=== PATIENT | female | born 1995 | race Caucasian/White ===

== ENCOUNTER 2016-07-04 03:51 | Emergency (ER) ==
[2016-07-04 04:48] LABS: URINE MICRO REVIEW NEEDED? NO; URINE SOURCE CLEAN CATCH
[2016-07-04 04:51] LABS: BILIRUBIN URINE NEGATIVE (NEGATIVE); BLOOD URINE NEGATIVE (NEGATIVE); COLOR YELLOW; GLUCOSE URINE NEGATIVE (NEGATIVE); LEUKOCYTES URINE TRACE (NEGATIVE); NITRITE URINE NEGATIVE (NEGATIVE); PROTEIN URINE TRACE mg/dL (NEGATIVE); SP GRAVITY URINE 1.028; TURBIDITY URINE HAZY (CLEAR); UR EPITHELIAL CELLS >10 /HPF (<10); URINE BACTERIA 2+ /HPF; URINE CULTURE NEEDED? YES; URINE RBC <10 /HPF (<10); UROBILINOGEN URINE 2 mg/dL (NORMAL)
[2016-07-04 05:16] LABS: UR AMPHETAMINES QUAL PRESUMPTIVE POSITIVE (NONE DETECT); UR BARBITUATES QUAL NONE DETECTED (NONE DETECT); UR BENZODIAZEPIN QUAL NONE DETECTED (NONE DETECT); UR CANNABINOIDS QUAL NONE DETECTED (NONE DETECT); UR COCAINE QUAL NONE DETECTED (NONE DETECT); UR METHADONE QUAL NONE DETECTED (NONE DETECT); UR OPIATES QUAL NONE DETECTED (NONE DETECT); UR OXYCODONE QUAL NONE DETECTED (NONE DETECT); UR PCP QUAL NONE DETECTED (NONE DETECT)
--- NOTE | 2016-07-04 05:27 | PROVIDER DOCUMENTATION ---
[id number] Abuse/Overdose - General Chief Complaint: General Adult Stated Complaint: "BAD METH" Time Seen by Provider: 07/04/16 04:14 Source: patient Allergies/Adverse Reactions: Allergies Allergy/AdvReac Type Severity Reaction Status Date / Time No Known Allergies Allergy Verified 11/26/15 00:30 Home Medications: Home Medication List Medication Instructions Recorded Confirmed Last Taken Type Doxycycline 100 mg PO BID #20 tablet 04/18/16 Unknown Rx Metronidazole [Flagyl] 500 mg PO BID #20 tablet 04/18/16 Unknown Rx - History of Present Illness-Drug/Alcohol Nature of Presenting Problem: 20 yo BF with terrible psychosocial problems seeking help for drug related problems - 'bad meth', chest heaviness due to crack cocaine smoking, etc. Her mother is in intermediate, father will not speak to her since he learned she was bisexual, unemployable and HS dropout. She has no place to go other than [employer]. - Substance Abuse Substance Use: reports: amphetamines, cocaine Age drug/alcohol abuse began?: 17 Duration of Abuse? (years): 3 - Detox/Hospitalizations Previous detox/rehab admissions?: Yes Currently enrolled in a Methadone Program?: No - Overdose Clinician's estimation of suicide risk?: low risk Review of Systems - Adult - REVIEW OF SYSTEMS - ADULT Constitutional: reports: weight loss Eyes: reports: no symptoms reported Ears, Nose, Mouth & Throat: reports: no symptoms reported Cardiovascular: reports: no symptoms reported Respiratory: reports: no symptoms reported Gastrointestinal: reports: no symptoms reported Genitourinary: reports: no symptoms reported Musculoskeletal: reports: no symptoms reported Integumentary: reports: no symptoms reported Neurological: reports: no symptoms reported Psychiatric: reports: anxiety, emotional problems. denies: anti-depressant use , suicidal thoughts Endocrine: reports: no symptoms reported, other (menorragia) Hematologic/Lymphatic: reports: no symptoms reported Allergic/Immunologic: reports: no symptoms reported All Other Systems: Reviewed and Negative Past History - Adult - PAST MEDICAL HISTORY-ADULT Review of Records: reports: Nursing Assessment Review Major Childhood Illnesses: reports: denies history Cardiovascular: reports: denies history Respiratory: reports: denies history Gastrointestinal: reports: denies history Obstetrical/Gynecological: reports: denies history Genitourinary: reports: denies history Musculoskeletal: reports: denies history Neurological: reports: denies history Psychiatric: reports: denies history Endocrine/Immune: reports: anemia Other Conditions: reports: denies history - PRIOR SURGERIES/PROCEDURES Surgical/Procedure History: reports: none - PRIOR HOSPITALIZATIONS Prior Hospitalizations: reports: none - IMMUNIZATION STATUS Childhood Immunizations: UTD Flu Vaccine: See Nurse Assessment - FAMILY HISTORY Family History: reviewed, not pertinent - SOCIAL HISTORY Smoking: denies Substance Use: amphetamines, cocaine Living Situation: homeless Physical Exam-General - PHYSICAL EXAM-ADULT Initial Vital Signs Reviewed: Yes - CONSTITUTIONAL General Appearance: appears well, alert, no apparent distress - EYES Eyes: PERRL/EOMI - HEAD, EARS, NOSE, MOUTH & THROAT HENMT: moist mucous membranes, normal ENT inspection, TMs normal, pharynx normal . negative: dental decay - NECK Neck: non-tender, full range of motion - RESPIRATORY Respiratory: chest non-tender, lungs clear, normal breath sounds. negative: wheezing - CARDIOVASCULAR Cardiovascular: normal peripheral pulses - CHEST (BREASTS) Chest/Breast: deferred - GASTROINTESTINAL (ABDOMEN) Abdominal Exam: normal bowel sounds, non tender, soft, no organomegaly - GENITOURINARY Female Genitalia/Pelvic Exam: deferred Rectal Exam: deferred - MUSCULOSKELETAL Back Exam: normal inspection Extremity: normal range of motion Peripheral Pulses: radial (R): 3+, radial (L): 3+, femoral (R): 3+, femoral (L) : 3+ - SKIN Integumentary: normal color, normal turgor - NEUROLOGIC Neurologic: grossly normal - PSYCHIATRIC Psych/Mental Status: normal thought content, normal thought process Progress - PLAN OF CARE/RESULTS Progress/Plan/Lab Results: Laboratory Tests 07/04/16 07/04/16 04:30 04:30 Urine Source CLEAN CATCH Urine Color YELLOW Urine Turbidity HAZY Urine pH 6.0 Ur Specific Benton 1.028 Urine Protein TRACE A Ur Glucose (Stick) NEGATIVE Ur Ketones (Stick) 150 A Urine Blood NEGATIVE Urine Nitrite NEGATIVE Urine Bilirubin NEGATIVE Urobilinogen Dipstick 2 A Urine Leukocytes TRACE A Urine WBC (Auto) 10-20 A Urine RBC (Auto) <10 U Epithel Cells (Auto) >10 A Urine Bacteria (Auto) 2+ Urine Opiates Screen NONE DETECTED Ur Oxycodone Screen NONE DETECTED Ur Methadone, Qual NONE DETECTED Ur Barbiturates Screen NONE DETECTED Ur Phencyclidine Scrn NONE DETECTED Ur Amphetamines Screen PRESUMPTIVE POSITIVE A U Benzodiazepines Scrn NONE DETECTED Urine Cocaine Screen NONE DETECTED U Cannabinoids Screen NONE DETECTED Orders Category Date Time Status UA NIMS W/REFLEX CULT [URINALYSIS] Stat Lab 07/04/16 04:30 Completed URINE CULTURE [RM] Routine Lab 07/04/16 04:52 Received URINE DRUG SCREEN Stat Lab 07/04/16 04:30 Completed Vital Signs Temp Pulse Resp BP Pulse Ox 07/04/16 03:40 99.0 F 90 16 124/82 100 No Known Allergies Allergy (Verified 11/26/15 00:30) Doxycycline 100 mg PO BID #20 tablet 04/18/16 Metronidazole [Flagyl] 500 mg PO BID #20 tablet 04/18/16 Laboratory 07/04/16 07/04/16 04:30 04:30 Urine Source CLEAN CATCH Urine Color YELLOW Urine Turbidity HAZY Urine pH 6.0 Ur Specific Benton 1.028 Urine Protein TRACE A Ur Glucose (Stick) NEGATIVE Ur Ketones (Stick) 150 A Urine Blood NEGATIVE Urine Nitrite NEGATIVE Urine Bilirubin NEGATIVE Urobilinogen Dipstick 2 A Urine Leukocytes TRACE A Urine WBC (Auto) 10-20 A Urine RBC (Auto) <10 U Epithel Cells (Auto) >10 A Urine Bacteria (Auto) 2+ Urine Opiates Screen NONE DETECTED Ur Oxycodone Screen NONE DETECTED Ur Methadone, Qual NONE DETECTED Ur Barbiturates Screen NONE DETECTED Ur Phencyclidine Scrn NONE DETECTED Ur Amphetamines Screen PRESUMPTIVE POSITIVE A U Benzodiazepines Scrn NONE DETECTED Urine Cocaine Screen NONE DETECTED U Cannabinoids Screen NONE DETECTED Departure - Departure Time of Disposition Order: 05:37 DIAGNOSIS: Amphetamine abuse, continuous Disposition: HOME 01 Certified Medical Emergency: Emergent Condition: Good Additional Instructions: ED Follow Up Instructions: You have been treated by a care provider in the Emergency Department. These instructions are being provided to you so you can have an understanding of how to care for yourself upon discharge. Upon discharge from the Emergency Department, you are responsible for making arrangements for follow-up care by a physician of your choice. Take all prescribed medications as directed. Return to the Emergency Department immediately for any new or worsening symptoms. You may call the Physician Referral phone number at [phone] to obtain a list of Physicians who are taking new patients. Referrals: Jose Parish MD [Primary Care Provider] - Instructions: Polysubstance Abuse, Stimulant Use Disorder-Methamphetamines
[2016-07-04 06:13] VITALS: BP 125/55
== END 2016-07-04 06:24 | disposition home or self-care (01) ==
LOC: EDUNIT# → EDBD → ED 03:51
DX: F15.10 Other stimulant abuse, uncomplicated (principal); R07.89 Other chest pain; R63.4 Abnormal weight loss; N92.0 Excessive and frequent menstruation with regular cycle
CPT/HCPCS: 81001; 87088; G0480; 80324; 80345; 80346; 80349; 80353; 80358; 80361; 80365; 83992

== ENCOUNTER 2018-08-26 17:57 | Inpatient (IN) ==
--- NOTE | 2018-08-26 18:26 | EKG Report ---
Test Performed on : 08/26/2018 6:08:22 PM Test Reason : cp Blood Pressure : / mmHG Vent. Rate : 098 BPM Atrial Rate : 098 BPM P-R Int : 144 ms QRS Dur : 090 ms QT Int : 338 ms P-R-T Axes : 073 063 062 degrees QTc Int : 431 ms Normal sinus rhythm. Normal ECG When compared with ECG of 06-NOV-2016 02:45, No significant change was found Confirmed by Israel Biggs MD ([id number]), film editor supervisor Adamaris Laird ([id number]) on 09/01/2018 1:54:51 PM
--- NOTE | 2018-08-26 19:19 | Diag Imaging Result Doc PS360 ---
EXAM: CHEST-2 VIEWS INDICATION: cp TECHNIQUE: 2 views COMPARISON: 11/03/2017 FINDINGS: The lungs are grossly clear. There is no discrete pleural fluid collection or pneumothorax. The cardiomediastinal silhouette and central vasculature are grossly unremarkable. IMPRESSION: No evidence of acute pathology by plain radiograph. Electronically signed by Justin Braun 08/26/2018 7:17 PM
[2018-08-26] MEDS ORDERED: SODIUM CHLORIDE 0.9% INJ ONE (19:30)
[2018-08-26] MEDS ORDERED: PROTONIX IV ONE (19:30)
[2018-08-26] MEDS ORDERED: ZOFRAN IV ONE (19:30)
[2018-08-26 19:56] LABS: BASO# 0.01 X1000 (0.0-0.2); BASO% 0.1 % (0.0-0.8); EOS# 0.01 X1000 (0.0-0.7); EOS% 0.1 % (0.0-10.0); HEMATOCRIT 38.1 % (37.0-47.0); HEMOGLOBIN 12.9 g/dL (12.0-16.0); IMM GRAN# 0.03 X1000 (0.0-0.04); IMM GRAN% 0.3 % (0.0-0.5); LYMPH# 0.93 X1000 (1.2-3.4); LYMPH% 8.9 % (20.5-51.1); MCH 29.9 PG (27-31); MCHC 33.9 g/dL (33-37); MCV 88.2 FL (81-99); MONO# 0.89 X1000 (0.11-0.59); MONO% 8.5 % (1.7-9.3); MPV 10.3 FL (7.4-10.4); NEUT# 8.58 X1000 (1.4-6.5); NEUT% 82.1 % (42.2-75.2); PLT 248 X1000 (130-400); RBC 4.32 XMIL (4.2-5.4); RDW 12.6 % (11.5-14.5); WBC 10.45 X1000 (4.8-10.8)
[2018-08-26 20:22] LABS: AGAP 11; ALBUMIN 4.2 g/dL (3.5-5.0); ALKALINE PHOSPHATASE 169 U/L (32-104); BUN 7 mg/dL (8-22); CALCIUM 9.3 mg/dL (8.8-10.2); CHLORIDE 97 mmol/L (98-107); COSMO 269; CREATININE 0.4 mg/dL (0.5-0.9); ESTIMATED GFR > 60; GLUCOSE 111 mg/dL (70-104); GPT 685 U/L (10-36); LIPASE 9 U/L (13-60); SODIUM 135 mmol/L (136-145); TCO2 27 mmol/L (25-35); TOTAL PROTEIN 8.1 g/dL (6.3-8.3)
[2018-08-26 20:33] LABS: GOT 969 U/L (10-30)
[2018-08-26] MEDS ORDERED: G.I. COCKTAIL ONE (20:34)
[2018-08-26] MEDS ORDERED: G.I. COCKTAIL PO ONE (20:36)
[2018-08-26] MEDS ORDERED: MORPHINE IV ONE ×2 (21:22→22:52)
[2018-08-26] MEDS ORDERED: ZOSYN 3.375 GM in NS 50 ML IV ONE (23:05)
--- NOTE | 2018-08-26 23:11 | PROVIDER DOCUMENTATION ---
This chart was entered by Cristiana Bautista Scribe, acting as scribe for Nicola White MD. HPI-General Adult - General Chief Complaint: Chest Pain Stated Complaint: EXTREMITY PAIN Time Seen by Provider: 08/26/18 19:11 Source: patient Allergies/Adverse Reactions: Patient Allergies Allergy/AdvReac Type Severity Reaction Status Date / Time No Known Allergies Allergy Verified 08/26/18 18:04 Home Medications: Home Medication List Medication Instructions Recorded Confirmed Last Taken Type Ibuprofen [Motrin] 800 mg PO Q8H PRN PRN #30 tab 11/03/17 Unknown Rx - History of Present Illness -Gen Adult Nature of Presenting Problems: pt is a 22 yr old female presenting with chest/abdominal pain, nausea and vom iting, pt reports dx as pleurisy at [facility] 08/19/18, pt reports pain not improving, filled prescriptions yesterday with no improvement since using inhaler, pt denies any other pain or complaints Location of Pain/Injury: reports: chest, abdomen Pain Radiation: reports: back Quality of Pain: reports: aching, burning, sharp Severity: reports: moderate Onset/Duration: reports: last week Timing: reports: still present Context/Activities at Onset: reports: light activity Modifying Factors: improves with: breathing (worsens pain), rest (improves pain) , other (inhaler-no improvement) Associated Symptoms: reports: back/neck pain, chest pain, heartburn, nausea, pain with inspiration, vomiting. denies: dizziness, fever/chills, shortness of breath Similar Symptoms Previously?: Yes (dx as pluerisy) Recently seen or treated by another doctor?: Yes (08/19/18) Review of Systems - Adult - REVIEW OF SYSTEMS - ADULT Constitutional: denies: chills, fever Eyes: denies: discharge, blurred vision, double vision, redness Ears, Nose, Mouth & Throat: reports: no symptoms reported Cardiovascular: reports: chest pain. denies: palpitations, syncope Respiratory: reports: pleurisy. denies: cough, shortness of breath Gastrointestinal: reports: abdominal pain, nausea, vomiting Genitourinary: reports: no symptoms reported Musculoskeletal: reports: back pain. denies: neck pain Integumentary: reports: no symptoms reported Neurological: denies: dizziness/vertigo, headache/migraines Psychiatric: reports: no symptoms reported Endocrine: reports: no symptoms reported Hematologic/Lymphatic: reports: no symptoms reported Allergic/Immunologic: reports: no symptoms reported All Other Systems: Reviewed and Negative Past History - Adult - PAST MEDICAL HISTORY-ADULT Review of Records: reports: Old Records Reviewed, Nursing Assessment Review, Medications Reviewed, Social history reviewed & non-contributory. Major Childhood Illnesses: reports: denies history Cardiovascular: reports: denies history Respiratory: reports: denies history Gastrointestinal: reports: denies history Obstetrical/Gynecological: reports: denies history Genitourinary: reports: denies history Musculoskeletal: reports: denies history Neurological: reports: denies history Psychiatric: reports: denies history Endocrine/Immune: reports: anemia Other Conditions: reports: denies history - PRIOR SURGERIES/PROCEDURES Surgical/Procedure History: reports: none - PRIOR HOSPITALIZATIONS Prior Hospitalizations: reports: none - IMMUNIZATION STATUS Childhood Immunizations: UTD Flu Vaccine: See Nurse Assessment - FAMILY HISTORY Family History: reviewed, not pertinent - SOCIAL HISTORY Smoking: cigarettes Provider spent 3-5 mins advising pt. on dangers of tobacco.: Discussed manners to quit use, and f/u contacts for add'l counseling. Substance Use: alcohol Living Situation: family Physical Exam-General - PHYSICAL EXAM-ADULT Initial Vital Signs Reviewed: Yes - CONSTITUTIONAL General Appearance: appears well, alert, no apparent distress - EYES Eyes: PERRL/EOMI - HEAD, EARS, NOSE, MOUTH & THROAT HENMT: normocephalic/atraumatic, moist mucous membranes, normal ENT inspection - NECK Neck: full range of motion, supple, C-spine tenderness - RESPIRATORY Respiratory: chest non-tender, lungs clear, normal breath sounds, no respiratory distress, no accessory muscle use - CARDIOVASCULAR Cardiovascular: normal peripheral pulses, no edema, no gallop, no JVD, no murmur , tachycardia - GASTROINTESTINAL (ABDOMEN) Abdominal Exam: normal bowel sounds, soft, tenderness (diffuse tenderss, increased at RUQ, epigatrium and RLQ) - LYMPHATIC Lymphatic: no adenopathy - MUSCULOSKELETAL Back Exam: no CVA tenderness, no vertebral tenderness Extremity: normal range of motion, non-tender, normal gait, normal inspection Peripheral Pulses: radial (R): 2+, radial (L): 2+ - SKIN Integumentary: normal color, normal turgor, warm/dry - NEUROLOGIC Neurologic: grossly normal, no motor/sensory deficits - PSYCHIATRIC Psych/Mental Status: normal mood/affect Progress - PLAN OF CARE/RESULTS Progress/Plan/Lab Results: Vital Signs - 8 hr 08/26/18 18:00 08/26/18 20:01 Temperature 97.9 F 98.6 F Pulse Rate 106 H 94 H Respiratory Rate 20 14 Blood Pressure 136/83 120/74 O2 Sat by Pulse Oximetry 99 97 Laboratory Results - last 24 hr 08/26/18 19:40 WBC 10.45 RBC 4.32 Hgb 12.9 Hct 38.1 MCV 88.2 MCH 29.9 MCHC 33.9 RDW Std Deviation 12.6 Plt Count 248 MPV 10.3 Immature Gran % (Auto) 0.3 Neut % (Auto) 82.1 H Lymph % (Auto) 8.9 L Robertson % (Auto) 8.5 Eos % (Auto) 0.1 Baso % (Auto) 0.1 Immature Gran # (Auto) 0.03 Neut # (Auto) 8.58 H Lymph # (Auto) 0.93 L Robertson # (Auto) 0.89 H Eos # (Auto) 0.01 Baso # (Auto) 0.01 Orders Category Date Time Status If abnormal EKG, order: NOW Care 08/26/18 18:06 Active Medical Records [Old records/chart to unit] .From other Care 08/26/18 19:31 Active facility CHEST-2 VIEWS [RAD] Stat Exams 08/26/18 18:06 Completed AMYLASE [CHEM] Routine Lab 08/26/18 19:40 Received CBC WITH DIFF [HEME] Stat Lab 08/26/18 19:40 Completed COMPREHENSIVE METABOLIC PANEL [CHEM] Stat Lab 08/26/18 19:40 Received LIPASE [CHEM] Stat Lab 08/26/18 19:40 Received Ondansetron [Zofran] Med 08/26/18 19:30 Discontinued 8 mg IV NOW ONE Pantoprazole [Protonix] Med 08/26/18 19:30 Discontinued 40 mg IV NOW ONE Sodium Chloride 0.9% Med 08/26/18 19:30 Discontinued 10 ml INJ NOW ONE CP/Palp <45 No Known Cardiac Hx Stat Oth 08/26/18 18:05 Ordered EKG [EKG] Stat Ther 08/26/18 18:06 Draft Records obtained from emil Porter Result Diagrams: 08/26/18 19:40 08/26/18 19:40 - EKG 1 Time of EKG reading by physician:: 18:10 EKG Read and Signed by:: Israel Biggs EKG Interpretation (*Must complete 3 of following elements*): Normal Rate: 98 Rhythm: nsr Dillon: normal QRS: normal MN Interval: normal ST Wave: normal - XRAY 1 XRAY Study: Chest Impression: Normal ( Signed EXAM: CHEST-2 VIEWS INDICATION: cp TECHNIQUE: 2 views COMPARISON: 11/03/2017 FINDINGS: The lungs are grossly clear. There is no discrete pleural fluid collection or pneumothorax. The cardiomediastinal silhouette and central vasculature are grossly unremarkable. IMPRESSION: No evidence of acute pathology by plain radiograph. Electronically signed by Justin Braun 08/26/2018 7:17 PM 08/26/181916 Interpreting Physician: Justin Braun MD Dictated Date/Time: 08/26/181915 cc: Israel Biggs MD; Jose Parish MD) Comparison with other Films: no changes (11/03/17) - ULTRASOUND (By Radiology) 1 US Study: Gallbladder Impression: Abnormal (1.gallstones but no gallbladder wall thickening to suggest ultrasound findings of acute cholecystitis, there is positive sonographic lepe sign) US Results: 1.gallstones but no gallbladder wall thickening to suggest ultrasound finds - CONSULTS/PCP/HOSPITALIST Notification #1 *Consult/PCP/Hospitalist*: Masood Time Discussed: 23:06 Consult Disposition: Admit Departure - Departure Date of Disposition Decision: 08/26/18 Time of Disposition Decision: 23:06 DIAGNOSIS: Cholelithiasis Qualifiers: Cholelithiasis location: gallbladder Cholecystitis presence: without cholecystitis Biliary obstruction: without biliary obstruction Qualified Code(s): K80.20 - Calculus of gallbladder without cholecystitis without obstruction Disposition: ADMITTED INPATIENT 09 Certified Medical Emergency: Emergent Condition: Good Additional Freetext Instructions: ED Follow Up Instructions: You have been treated by a care provider in the Emergency Department. These i nstructions are being provided to you so you can have an understanding of how to care for yourself upon discharge. Upon discharge from the Emergency Department, you are responsible for making arrangements for follow-up care by a physician of your choice. Take all prescribed medications as directed. Return to the Emergency Department immediately for any new or worsening symptoms. You may call the Physician Referral phone number at [phone] to obtain a list of Physicians who are taking new patients. Referrals and Follow-Ups: Jose Parish MD [Primary Care Provider] - Work Excuses: Return to School/Parent Work - Critical Care Note This patient required my direct & personal management of CC.: No Attestation - Physician/ BELA Attestation Patient care was provided by Advanced Practice Provider:: No The physician spent face to face time with patient:: Yes Advanced Practice Provider documentation review:: Supervising physician onsite and consulted in the evaluation and care of this patient. The physician did have a face to face encounter with the patient. This chart was documented by the indicated scribe, (Cristinaa Bautista Scribe) and accurately reflects the services I performed and decisions made by me, Nicola White MD, as attested by the provider's signature.
[2018-08-27] MEDS ORDERED: ZOFRAN IV PRN ×2 (02:57→15:14)
[2018-08-27] MEDS ORDERED: NS 1,000 ML IV ONE (02:57)
[2018-08-27] MEDS: MORPHINE IV PRN ×4 (03:44→19:57)
--- NOTE | 2018-08-27 06:31 | Diag Imaging Result Doc PS360 ---
EXAM: US GB < RUQ (LIMITED) HISTORY: RUQ pain TECHNIQUE: Right upper quadrant ultrasound COMPARISON: None. FINDINGS: Normal pancreatic head. Portions of the body and tail are obscured. No abdominal aortic aneurysm. Normal inferior vena cava. No ascites right upper quadrant. Normal liver. The common bile duct measures 7 mm. Normal right kidney. No hydronephrosis. There are multiple gallstones and there is sludge within the gallbladder. There is pericholecystic fluid. Positive sonographic Johns's sign. IMPRESSION: Cholelithiasis with findings suspicious for acute cholecystitis. A preliminary report was given at 10:49 PM. A corrected report was called at 6:25 AM and given to the patient's nurse, Pia. Electronically signed by Hi Tenorio 08/27/2018 6:28 AM
[2018-08-27] MEDS ORDERED: FENTANYL ONE (09:22)
[2018-08-27] MEDS ORDERED: DIPRIVAN 1% ONE (09:22)
[2018-08-27] MEDS ORDERED: SODIUM CHLORIDE 0.9% ONE (09:33)
[2018-08-27] MEDS ORDERED: LR 1,000 ML ONE (09:33)
[2018-08-27] MEDS ORDERED: SENSORCAINE 0.5%-EPI 1:200,000 ONE (09:33)
--- NOTE | 2018-08-27 09:43 | HISTORY AND PHYSICAL ---
DATE: 08/27/2018 HISTORY OF PRESENT ILLNESS: A 22-year-old female who has had right-sided chest and abdominal discomfort for several months. It became more severe. She went to the ER in [place] and was told she had pleurisy, but came here and an ultrasound was obtained that showed gallstones with possible acute cholecystitis. She denies any jaundice. Her liver function tests are elevated. She denies any heavy Tylenol use, but has been taking some Tylenol for pain relief. REVIEW OF SYSTEMS: 10-point and negative other than what was mentioned in her history of present illness. MEDICAL HISTORY: Negative, other than history of anemia. SURGICAL HISTORY: Negative. SOCIAL HISTORY: Occasionally drinks, occasionally smokes. No other drugs. FAMILY HISTORY: Reviewed and noncontributory. OBJECTIVE: Vitals: Temperature 97.9, pulse 94, blood pressure 130/80, oxygen 99%. General: She is alert, in no acute distress. HEENT: No scleral icterus. No cervical mass. Cardiovascular: Normal rate. Pulmonary: No increased work of breathing. Abdomen: Soft. Mild tenderness in the right upper quadrant, but no peritonitis. Psychiatric: Appropriate affect. Neurologic: No gross deficits. Peripheral vascular: No lower extremity edema. LABORATORY: White count 10, hematocrit 38, platelets 248,000. Creatinine 0.4, bilirubin is 1.50, AST 969, ALT 685, alkaline phosphatase 169, lipase is 9. Albumin is 4.2. IMAGING: Her ultrasound of her gallbladder shows common bile duct measuring 7 mm, multiple gallstones and sludge in the gallbladder. There is pericholecystic fluid, and a positive sonographic Johns's sign. ASSESSMENT AND PLAN: A 22-year-old female with acute cholecystitis in the setting of cholelithiasis. She does have elevation of liver function tests. Her common bile duct is normal caliber. We discussed risk of bleeding, infection, conversion to open, damage to surrounding structures, bile leak, anticipated recovery. She understands all this and consents to laparoscopic cholecystectomy with cholangiogram. We also discussed the possibility of a follow-up ERCP if she does have choledocholithiasis noted on cholangiogram. She received antibiotics, antiemetics, pain medication. She is on IV fluids. We will go to the operating room today. cc: MD SOY Erwin
[2018-08-27] MEDS ORDERED: ZOSYN 3.375 GM in NS 50 ML IV ONE (10:00)
[2018-08-27] MEDS ORDERED: DECADRON ONE (11:19)
[2018-08-27] MEDS ORDERED: OFIRMEV 1000 MG/ISOTONIC SOLN 1,000 MG/100 ML BOTTLE ONE (11:19)
[2018-08-27] MEDS ORDERED: QUELICIN (DOSE) ONE (11:19)
[2018-08-27] MEDS ORDERED: ZOFRAN ONE (11:19)
[2018-08-27] MEDS ORDERED: NEOSTIGMINE ONE (11:19)
[2018-08-27] MEDS ORDERED: XYLOCAINE-MPF 2% ONE (11:19)
[2018-08-27] MEDS ORDERED: NEO-SYNEPHRINE ONE (11:20)
--- NOTE | 2018-08-27 11:32 | Diag Imaging Result Doc PS360 ---
EXAM: OPERATIVE CHOLANGIOGRAM HISTORY: GALLBLADDER TECHNIQUE: Intraoperative cholangiogram, single view COMPARISON: None. FINDINGS: Contrast fills the intrahepatic ducts and common bile duct. There is a filling defect within the common bile duct. The intrahepatic ducts are dilated. IMPRESSION: There is a stone in the common bile duct. Electronically signed by Hi Tenorio 08/27/2018 11:30 AM
[2018-08-27] MEDS: MORPHINE ONE ×2 (12:15→12:20)
--- NOTE | 2018-08-27 12:54 | OPERATIVE NOTE ---
PROCEDURE DATE: 08/27/2018 PREOPERATIVE DIAGNOSIS: Acute cholecystitis. POSTOPERATIVE DIAGNOSIS: Acute cholecystitis with choledocholithiasis. PROCEDURE PERFORMED: Laparoscopic cholecystectomy with cholangiogram. SURGEON: Jaret Correia M.D. ANESTHESIA: General. SPECIMENS: Gallbladder. DRAINS: Delfino drain. INDICATIONS: A 22-year-old female who presents with right upper quadrant, right flank, and chest pain for several months. She had an ultrasound obtained in the emergency department that showed gallbladder wall thickening with tenderness and gallstones in the setting of elevated liver function tests. She is admitted for further management. OPERATIVE FINDINGS: There was a densely inflamed, erythematous gallbladder with purulent bile noted within. Numerous stones impacted within the neck of the gallbladder. Massively dilated cystic duct, consistent with distal obstruction. Interpretation of intraoperative cholangiogram showed abrupt transition point in the common bile duct related to a retained gallstone here with dense obstruction. There was dilated common hepatic and intrahepatic radicals consistent with choledocholithiasis. DESCRIPTION OF PROCEDURE: Risks, benefits, and alternatives were discussed with the patient, and she consented to the procedure. She was seen preoperatively. Surgical site was confirmed. She was taken to the operating room and placed in the supine position. General anesthesia was induced without complication. All bony prominences were padded. Her abdomen was prepped with chlorhexidine solution, draped in the usual fashion. After a time-out, a curvilinear infraumbilical incision was made, carried down to the level of the fascia. The fascia was incised, and the abdomen was insufflated to 15 mmHg. We then placed 3 trocars, 5 mm, one in the epigastrium, one in the midclavicular line off the costal margin, and one more laterally. The gallbladder was grasped and retracted cephalad, and it was tensely distended. We had to decompress this with suction decompression catheter to facilitate exposure. There was a very large, inflamed Calot's node that we dissected down to expose the infundibulum cystic junction and a small cystic artery that coursed through this that we encircled and divided with electrocautery. This facilitated our exposure. We dissected the lower third of the gallbladder, identifying the critical view. The cystic duct was very dilated. We made an opening after occluding the infundibulum proximally, and milked out a large amount of purulent sludge and bile and stones within the lumen, and suctioned all this until clear. We felt we had adequately cleared the duct, and performed a cholangiogram through this with the above findings. After confirming our anatomy, that the length of the cystic duct was quite long, but it was very dilated, it would not allow closure with a clip, we elected use an Endo REYNA stapler. We confirmed our anatomy. You could actually visualize the common bile duct well away from where we were to ensure that we did not encroach on this, and it was very dilated. We closed this with a 45 mm gold load Endo REYNA stapler. There was good closure. We removed the gallbladder with no significant spillage of bile or stones, and placed it in an EndoCatch bag. We copiously irrigated. There was good closure of the cystic duct. There was no bleeding. We placed a Delfino drain in the gallbladder fossa. I did have to upsize the epigastric port to a 12 to admit the stapler. We secured the drain with nylon suture, desufflated the abdomen, and brought the gallbladder out through the umbilical incision, closed the fascia at the epigastric and the umbilical incision with 0 Vicryl. Skin was closed with 4-0 Monocryl. Drain was placed to suction. It was clear. cc: Jaret Correia MD
[2018-08-27] MEDS: ZOSYN 3.375 GM in NS 50 ML IV SCH ×2 (17:24→21:17)
[2018-08-27] MEDS: LR 1,000 ML IV SCH (17:25)
[2018-08-27] MEDS: NORCO-7.5 PO PRN (21:16)
[2018-08-28] MEDS: MORPHINE IV PRN ×8 (00:34→21:28)
[2018-08-28] MEDS: LR 1,000 ML IV SCH ×2 (03:32→15:29)
[2018-08-28] MEDS: ZOSYN 3.375 GM in NS 50 ML IV SCH ×4 (03:32→21:28)
[2018-08-28 09:23] LABS: BASO# 0.01 X1000 (0.0-0.2); BASO% 0.1 % (0.0-0.8); EOS# 0.04 X1000 (0.0-0.7); EOS% 0.4 % (0.0-10.0); HEMATOCRIT 35.6 % (37.0-47.0); HEMOGLOBIN 11.5 g/dL (12.0-16.0); IMM GRAN# 0.02 X1000 (0.0-0.04); IMM GRAN% 0.2 % (0.0-0.5); LYMPH# 1.42 X1000 (1.2-3.4); MCH 29.3 PG (27-31); MCHC 32.3 g/dL (33-37); MCV 90.8 FL (81-99); MONO% 10.1 % (1.7-9.3); MPV 10.6 FL (7.4-10.4); NEUT# 8.32 X1000 (1.4-6.5); NEUT% 76.2 % (42.2-75.2); PLT 235 X1000 (130-400); RBC 3.92 XMIL (4.2-5.4); RDW 13.4 % (11.5-14.5); WBC 10.91 X1000 (4.8-10.8)
[2018-08-28 09:38] LABS: AGAP 6; ALB/GLOB RATIO 0.9; ALBUMIN 3.2 g/dL (3.5-5.0); ALKALINE PHOSPHATASE 225 U/L (32-104); BUN 5 mg/dL (8-22); CALCIUM 8.7 mg/dL (8.8-10.2); CHLORIDE 102 mmol/L (98-107); COSMO 273; CREATININE 0.6 mg/dL (0.5-0.9); ESTIMATED GFR > 60; GLUCOSE 92 mg/dL (70-104); GOT 246 U/L (10-30); GPT 601 U/L (10-36); LIPASE 8 U/L (13-60); POTASSIUM 3.8 mmol/L (3.5-5.1); SODIUM 138 mmol/L (136-145); TCO2 30 mmol/L (25-35); TOTAL BILIRUBIN 3.08 mg/dL (0.20-1.00); TOTAL PROTEIN 6.7 g/dL (6.3-8.3)
[2018-08-28] MEDS: PROTONIX IV SCH (10:58)
--- NOTE | 2018-08-28 12:10 | GENERAL SURGERY PROGRESS NOTE ---
DATE: 08/28/2018 SUBJECTIVE: She felt much better last night, having some increasing discomfort across her upper abdomen this morning. No fevers. No tachycardia. Her blood pressure is 107/55, oxygen saturation 100%. OBJECTIVE: General: She is alert. Her GODWIN drain is draining serosanguineous. Incisions are intact. LABS: White count is 10, hematocrit 35, creatinine 0.6, bilirubin is up to 3.08. AST, ALT are downtrending from previous but remain elevated. Lipase normal. ASSESSMENT AND PLAN: This 22-year-old female status post laparoscopic appendectomy for purulent cholecystitis with choledocholithiasis noted on her cholangiogram. We have her on antibiotics. Drain is clear. We will continue her pain control. I have talked to Dr. Wright and Dr. Rey about her ERCP. We will defer timing of this to them but hopefully today or tomorrow. We will continue to follow her closely with serial LFTs and antibiotics going forward. I do have her on IV fluids. She has got SCDs and she is ambulating for prophylaxis, but given the possibility of ERCP, we are holding her Lovenox. cc: Jaret Correia MD
[2018-08-28] MEDS: NORCO-7.5 PO PRN ×3 (12:17→21:44)
--- NOTE | 2018-08-28 12:19 | GASTROENTEROLOGY CONSULTATION ---
DATE: 08/28/2018 ATTENDING PHYSICIAN: Dr. Edison Correia. PRIMARY CARE DOCTOR: Dr. Jose Parish. REASON FOR CONSULTATION: Choledocholithiasis. HISTORY OF PRESENT ILLNESS: Ms. Fleming is a 22-year-old female, who was admitted on 08/19/2018, for right-sided chest and abdominal discomfort for several months. It got worse to a point that she had to come to the ER. Initially, she went to the ER and was told that she had pleurisy, but then she came to [facility] where she had ultrasound done which showed evidence of gallstones with possible acute cholecystitis. Her liver enzymes were elevated. She underwent laparoscopic cholecystectomy with cholangiogram per Dr. Correia on 08/27/2018. The intraoperative cholangiogram showed a stone in the common bile duct. Gastroenterology consulted for further management. PAST MEDICAL HISTORY: Negative. PAST SURGERY: Recent cholecystectomy, intraoperative cholangiogram on 08/19/2018. SOCIAL HISTORY: She occasionally drinks. She occasionally smokes. No other drugs. Her family is at the bedside. FAMILY HISTORY: Noncontributory. REVIEW OF SYSTEMS: Denies any fevers, rigors, chills, chest pain. She does have some soreness at the surgery site. No nausea or vomiting. She denies any major arthritis. She denies any neurologic complaints. MEDICATIONS IN HOSPITAL: 1. Hydrocodone/acetaminophen. 2. Ringer's lactate 100 mL per hour. 3. Morphine. 4. Zofran. 5. Protonix. 6. Normal saline. 7. Zosyn. She is currently on a clear liquid diet. PHYSICAL EXAMINATION: Vital Signs: Temperature 98 degrees, pulse of 91, respiratory rate 16, blood pressure 107/55, saturating 100%. Body weight of 140 pounds, BMI 27.3 kg. General: Ms. Fleming is lying in bed, in no acute distress. HEENT: Mild pallor. Mild icterus. Pupils equal, reactive to light. Neck: Supple. Abdomen: Discomfort in the right upper quadrant. She has a drain in the right upper quadrant which is draining some serosanguineous fluid. No guarding or rebound. Extremities: No cyanosis, clubbing. Neurologic: Alert, awake, oriented. LABORATORY DATA: Hemoglobin and hematocrit are 11.5 and 35.6, white count of 10.9, platelet count of 235,000. Sodium 130, potassium 3.8, chloride 102, bicarb of 39, AG 6, BUN of 5, creatinine 0.6, glucose of 892. Calcium is 8.7, total bilirubin 3.08, AST 246, ALT 601, alkaline phosphatase 225, total protein 6, albumin of 3.2. Amylase of 41, lipase of 8. Percent neutrophils was 76.2%. Liver enzymes are trending down, and urine was negative. Ultrasound of the abdomen done on admission showed cholelithiasis with findings suspicious for acute cholecystitis. IMPRESSION AND PLAN: 1. Choledocholithiasis. 2. Cholecystectomy with intraoperative cholangiogram on 08/27/[address] Correia. RECOMMENDATIONS: 1. We will keep the patient on clear liquid diet today. She will continue IV fluids, IV pain control, IV antiemetics, and IV antibiotics. 2. We will schedule her for ERCP tomorrow by Dr. Wright. The risks, benefits, indications, alternatives to the procedure discussed with the patient and all questions were answered. The procedure will be done by Dr. Wright tomorrow. We will continue to follow her labs. We will recheck her labs in the morning tomorrow. 3. We will follow along. 4. We will start on GI prophylaxis with PPIs once daily. The above plan discussed with the patient. All questions answered. Please call us with any further questions. cc: MD Jaret Metz MD Kenneth E. Mashburn, MD MTDD
[2018-08-29] MEDS: MORPHINE IV PRN ×8 (00:21→22:30)
[2018-08-29] MEDS: NORCO-7.5 PO PRN ×4 (01:47→21:03)
[2018-08-29] MEDS: ZOSYN 3.375 GM in NS 50 ML IV SCH ×4 (04:48→21:04)
[2018-08-29 06:27] LABS: BASO# 0.02 X1000 (0.0-0.2); BASO% 0.3 % (0.0-0.8); EOS# 0.09 X1000 (0.0-0.7); EOS% 1.4 % (0.0-10.0); HEMATOCRIT 33.5 % (37.0-47.0); HEMOGLOBIN 10.9 g/dL (12.0-16.0); LYMPH# 1.34 X1000 (1.2-3.4); LYMPH% 20.3 % (20.5-51.1); MCH 29.5 PG (27-31); MCHC 32.5 g/dL (33-37); MCV 90.8 FL (81-99); MONO# 0.78 X1000 (0.11-0.59); MONO% 11.8 % (1.7-9.3); MPV 10.4 FL (7.4-10.4); NEUT# 4.38 X1000 (1.4-6.5); NEUT% 66.2 % (42.2-75.2); PLT 229 X1000 (130-400); RBC 3.69 XMIL (4.2-5.4); RDW 13.2 % (11.5-14.5); WBC 6.61 X1000 (4.8-10.8)
[2018-08-29 06:38] LABS: INR 1.11; PROTIME 15.2 Seconds (11.0-16.0)
[2018-08-29 07:24] LABS: AGAP 11; ALBUMIN 3.1 g/dL (3.5-5.0); ALKALINE PHOSPHATASE 208 U/L (32-104); BUN 2 mg/dL (8-22); CALCIUM 8.4 mg/dL (8.8-10.2); CHLORIDE 104 mmol/L (98-107); COSMO 280; CREATININE 0.5 mg/dL (0.5-0.9); ESTIMATED GFR > 60; GLUCOSE 108 mg/dL (70-104); GOT 113 U/L (10-30); GPT 382 U/L (10-36); POTASSIUM 3.6 mmol/L (3.5-5.1); SODIUM 142 mmol/L (136-145); TCO2 27 mmol/L (25-35); TOTAL PROTEIN 6.2 g/dL (6.3-8.3)
[2018-08-29] MEDS: LR 1,000 ML IV SCH ×3 (08:00→16:43)
[2018-08-29] MEDS: PROTONIX IV SCH (08:01)
[2018-08-29] MEDS ORDERED: VERSED ONE (11:24)
[2018-08-29] MEDS ORDERED: DIPRIVAN 1% ONE ×3 (11:25→12:32)
--- NOTE | 2018-08-29 13:15 | OPERATIVE NOTE ---
PROCEDURE DATE: 08/29/2018 PROCEDURE: 1. Endoscopic retrograde cholangiopancreatography. 2. Endoscopic sphincterotomy. PREOPERATIVE DIAGNOSIS: Rule out common bile duct stone. POSTOPERATIVE DIAGNOSIS: Unable to enter all the way into the common bile duct status post wide papillotomy. DESCRIPTION OF PROCEDURE: After informed consent and adequate intravenous sedation, the scope introduced through the esophagus, stomach, and duodenum. The ampulla appears normal. No evidence of any impacted stone in the bile duct. At this point, I could see the angle of the common bile duct several times. Pancreatic duct is being cannulated at this point in the direction of the common bile duct. I did a wide papillotomy with free flow of bile. I still could not get in the guidewire in the common bile duct. Hopefully, once the edema is done, she will pass the stone or we can redo it. I am afraid to get an with pancreatitis. The scope was withdrawn. I have explained these findings. Will keep her n.p.o. until tomorrow. If she has no abdominal problems, we will start feeding her. cc: MD Jaret Davis MD MTDD
--- NOTE | 2018-08-29 18:12 | GENERAL SURGERY PROGRESS NOTE ---
DATE: 08/29/2018 SUBJECTIVE: Feeling some better. Appetite has increased. No fevers. No tachycardia. LABS: This morning show bilirubin of 2.70, AST, ALT and alkaline phosphatase continues down trend. OBJECTIVE: GODWIN drain serosanguineous. Abdomen is soft. Incision intact. ASSESSMENT AND PLAN: A 22-year-old female with choledocholithiasis. Plans for ERCP today. We will follow results of this and plan for disposition pending these findings. cc: Jaret Correia MD
[2018-08-30] MEDS: MORPHINE IV PRN ×7 (01:07→22:14)
[2018-08-30] MEDS: ZOSYN 3.375 GM in NS 50 ML IV SCH ×4 (04:18→22:14)
[2018-08-30] MEDS: NORCO-7.5 PO PRN ×3 (05:32→14:57)
[2018-08-30] MEDS: PROTONIX IV SCH (09:17)
[2018-08-30] MEDS: SODIUM CHLORIDE 0.9% INJ SCH (09:17)
[2018-08-30 13:50] LABS: BASO# 0.02 X1000 (0.0-0.2); BASO% 0.3 % (0.0-0.8); EOS% 1.4 % (0.0-10.0); HEMATOCRIT 34.8 % (37.0-47.0); HEMOGLOBIN 11.5 g/dL (12.0-16.0); LYMPH# 1.28 X1000 (1.2-3.4); LYMPH% 17.9 % (20.5-51.1); MCH 29.3 PG (27-31); MCV 88.5 FL (81-99); MONO# 0.49 X1000 (0.11-0.59); MONO% 6.9 % (1.7-9.3); MPV 10.1 FL (7.4-10.4); NEUT# 5.26 X1000 (1.4-6.5); NEUT% 73.5 % (42.2-75.2); PLT 262 X1000 (130-400); RBC 3.93 XMIL (4.2-5.4); RDW 12.5 % (11.5-14.5); WBC 7.15 X1000 (4.8-10.8)
[2018-08-30 14:19] LABS: AGAP 9; ALBUMIN 3.2 g/dL (3.5-5.0); ALKALINE PHOSPHATASE 218 U/L (32-104); BUN 5 mg/dL (8-22); CALCIUM 8.5 mg/dL (8.8-10.2); CHLORIDE 101 mmol/L (98-107); COSMO 267; CREATININE 0.5 mg/dL (0.5-0.9); ESTIMATED GFR > 60; GLUCOSE 85 mg/dL (70-104); GOT 69 U/L (10-30); GPT 262 U/L (10-36); LIPASE 72 U/L (13-60); POTASSIUM 3.6 mmol/L (3.5-5.1); SODIUM 135 mmol/L (136-145); TCO2 25 mmol/L (25-35); TOTAL BILIRUBIN 3.04 mg/dL (0.20-1.00); TOTAL PROTEIN 6.4 g/dL (6.3-8.3)
--- NOTE | 2018-08-30 15:50 | PROVIDER PROGRESS NOTE ---
Progress Note SUBJECTIVE: No acute overnight events. Patient reports nausea. No V/F, CP, SOB. Abdominal pain controlled. +flatus. No BM. Tolerating clears OBJECTIVE: Last Vital Signs Temp 97.8 F 08/30/18 11:16 Pulse 72 08/30/18 11:16 Resp 16 08/30/18 11:16 BP 119/73 08/30/18 11:16 Pulse Ox 100 08/30/18 11:16 Height 5 ft Weight 140 lb GEN: awake, alert, non-toxic, NAD HEENT: anicteric, MMM NECK: supple, no jvd PULM: CTAB, no wheezing CV: RRR, no murmurs ABD: soft, ND, hypoactive BS, mild TTP throughout, RUQ GODWIN in place EXT: no cce NEURO: LABS: 08/30/18 08/30/18 13:35 13:35 WBC 7.15 Hgb 11.5 L Plt Count 262 Sodium 135 L Potassium 3.6 Chloride 101 Carbon Dioxide 25 BUN 5 L D Creatinine 0.5 Total Bilirubin 3.04 H AST 69 H ALT 262 H Alkaline Phosphatase 218 H Total Protein 6.4 Albumin 3.2 L Lipase 72 H ERCP 08/29 PROCEDURE DATE: 08/29/2018 PROCEDURE: 1. Endoscopic retrograde cholangiopancreatography. 2. Endoscopic sphincterotomy. PREOPERATIVE DIAGNOSIS: Rule out common bile duct stone. POSTOPERATIVE DIAGNOSIS: Unable to enter all the way into the common bile duct status post wide papillotomy. DESCRIPTION OF PROCEDURE: After informed consent and adequate intravenous sedation, the scope introduced through the esophagus, stomach, and duodenum. The ampulla appears normal. No evidence of any impacted stone in the bile duct. At this point, I could see the angle of the common bile duct several times. Pancreatic duct is being cannulated at this point in the direction of the common bile duct. I did a wide papillotomy with free flow of bile. I still could not get in the guidewire in the common bile duct. Hopefully, once the edema is done, she will pass the stone or we can redo it. I am afraid to get an [*] with pancreatitis. The scope was withdrawn. I have explained these findings. Will keep her n.p.o. until tomorrow. If she has no abdominal problems, we will start feeding her. A/P: Ms. Mary Fleming is a 22 year old woman admitetd with acute cholecystitis s/p lap mikhail noted to have choledocholithiasis on IOC. ERCP yesterday was negative for CBD stone s/p sphincterotomy; unable to pass wire into CBD. LFTs improving. She is clinically stable. No leukocytosis. On abx. #Choledocholithiasis: negative; elevated lipase not clinically significant - trending LFTs daily - on empiric abx with zosyn - clear liquid diet #Acute cholecystitis: s/p lap mikhail; GODWIN drain in place; surgery following; defer GODWIN drain mgmt to surgery #Anemia: no overt bleeding; trending H/H #Abnormal LFTs: improving #Nausea; antiemetics prn; on PPI Will follow with you
[2018-08-30] MEDS: LR 1,000 ML IV SCH (16:10)
--- NOTE | 2018-08-30 20:27 | GENERAL SURGERY PROGRESS NOTE ---
DATE: 08/30/2018 SUBJECTIVE: Having a little bit of pains and nausea, not feeling great. She is having bowel function. GODWIN drainage serosanguineous. Abdomen is soft, appropriately tender. She had her ERCP yesterday and no obvious stone. Apparently, she did have a sphincterotomy. OBJECTIVE: I reviewed her labs today. Her white count is 7, hematocrit is 34. Her bilirubin is up slightly at 3.04, but AST, ALT, and alkaline phosphatase are overall down trending. Lipase is up slightly at 72. ASSESSMENT AND PLAN: 21-year-old female, status post cholecystectomy with choledocholithiasis. Monitor liver function tests. I worry she may have residual stone, but did not seem to be demonstrated on her endoscopic retrograde cholangiopancreatography. Otherwise, we will continue her clear liquids for now given her mild pancreatitis, and her antibiotics for possible distal bile duct obstruction, and fluids. I have encouraged her to be out of bed. Disposition pending labs tomorrow. cc: Jaret Correia MD
[2018-08-31] MEDS: MORPHINE IV PRN ×5 (00:29→12:05)
[2018-08-31] MEDS: ZOSYN 3.375 GM in NS 50 ML IV SCH ×4 (04:06→22:39)
[2018-08-31] MEDS: NORCO-7.5 PO PRN ×4 (04:55→19:48)
[2018-08-31 07:01] LABS: MCH 29.8 PG (27-31); MCHC 33.3 g/dL (33-37); MCV 89.3 FL (81-99); MPV 10.2 FL (7.4-10.4); RBC 4.03 XMIL (4.2-5.4); RDW 12.8 % (11.5-14.5); WBC 10.55 X1000 (4.8-10.8)
[2018-08-31 07:28] LABS: AGAP 12; ALB/GLOB RATIO 0.9; ALBUMIN 3.2 g/dL (3.5-5.0); ALKALINE PHOSPHATASE 236 U/L (32-104); BUN 6 mg/dL (8-22); CALCIUM 8.6 mg/dL (8.8-10.2); CHLORIDE 101 mmol/L (98-107); COSMO 276; CREATININE 0.5 mg/dL (0.5-0.9); ESTIMATED GFR > 60; GLUCOSE 88 mg/dL (70-104); GOT 101 U/L (10-30); GPT 257 U/L (10-36); LIPASE 31 U/L (13-60); POTASSIUM 3.8 mmol/L (3.5-5.1); SODIUM 140 mmol/L (136-145); TCO2 27 mmol/L (25-35); TOTAL PROTEIN 6.6 g/dL (6.3-8.3)
[2018-08-31] MEDS: SODIUM CHLORIDE 0.9% INJ SCH (10:34)
[2018-08-31] MEDS: PROTONIX IV SCH (10:35)
--- NOTE | 2018-08-31 13:32 | GASTROENTEROLOGY PROGRESS NOTE ---
DATE: 08/31/2018 SUBJECTIVE: The patient is resting in bed. She complains of nausea. She also complains of discomfort in the abdomen, but it is getting better. She denies any vomiting or vomiting blood. She is eating better. She ate steak out last night. She has not had a bowel movement since admission. She denies any fevers, rigors, or chills. OBJECTIVE: Vital signs: Temperature 97.8, pulse of 80, respiratory rate 20, blood pressure 118/73, satting 100% on room air. General Appearance: Moderately nourished, lying in bed in no acute distress. HEENT: Mild pallor. Mild icterus. Neck: Supple. Abdomen: Discomfort in the right upper quadrant. No rebound or guarding. She has a drain in the right upper quadrant. Extremities: No cyanosis, clubbing. Neurologic: Neuro-baron alert, awake and oriented x3. LABS: Her hemoglobin and hematocrit is 12 and 36, white count of 10.5, platelet count of 290. Sodium 140, potassium 3.8, chloride 101, bicarbonate of 27, anion gap 12. BUN of 6, creatinine 0.5, glucose of 88, calcium is 8.6. Total bilirubin is 3.3, AST 101, ALT 257, alkaline phosphorus is 236, total protein 6.2, albumin of 3.2, lipase of 31 which is normal. IMPRESSION AND PLAN: 1. Status post cholecystectomy per Dr. Correia. She is recovering. 2. Choledocholithiasis. She had an attempted endoscopic retrograde cholangiopancreatography with Dr. Wright and had an endoscopic sphincterotomy, but the deep cannulation of common duct could not be performed. According to a note from Dr. Wright, the patient most likely will pass the stone, but if liver enzymes worsen then we may have to repeat the endoscopic retrograde cholangiopancreatography. I discussed that possibility with the patient. 3. Gastrointestinal prophylaxis with Protonix. 4. Constipation. Patient has had no bowel movement for the last 5 days. We will give her a dose of Dulcolax suppository and MiraLAX once daily. 5. Continue on intravenous antibiotics, intravenous pain control and intravenous fluids. 6. She will continue clear liquid diet. 7. We will follow along. The above plans discussed with the patient. All questions answered. Please call us with further questions. cc: MD Jaret Metz MD Kenneth E. Mashburn, MD
[2018-08-31] MEDS: LR 1,000 ML IV SCH (16:21)
[2018-08-31] MEDS: MIRALAX PO SCH ×3 (18:35→22:39)
--- NOTE | 2018-08-31 19:47 | GENERAL SURGERY PROGRESS NOTE ---
DATE: 08/31/2018 SUBJECTIVE: Feeling some better. Still having some abdominal discomfort. No fevers. Not really much of an appetite. OBJECTIVE: Pulse 63, blood pressure 117/66, oxygen saturation 100%. General: She is alert. No obvious jaundice. Abdomen is soft. GODWIN drain is serosanguineous. LABORATORY DATA: White count is 10, hematocrit is 36. Bilirubin is 3.30, that is up from the last 2 checks and really the highest it has been since she has been here. AST, ALT and alkaline phosphatase remain elevated, although downtrending some. Lipase is now normal at 31. ASSESSMENT AND PLAN: A 22-year-old female with choledocholithiasis. She had an endoscopic retrograde cholangiopancreatography that did not clearly demonstrate a stone. She did have a sphincterotomy and it was felt that she would pass a stone. I worry with her persistent hyperbilirubinemia that she does have retained debris in the common bile duct. I may get an magnetic resonance cholangiopancreatography tomorrow to evaluate this further. Otherwise, she may need repeat endoscopic retrograde cholangiopancreatography. She is on antibiotics for distal obstruction. She has no bile leak and she is progressing reasonably well, all things considered. cc: Jaret Correia MD
[2018-08-31] MEDS: DULCOLAX PR SCH (19:49)
[2018-09-01] MEDS: DULCOLAX PR SCH ×2 (01:35→22:13)
[2018-09-01] MEDS: NORCO-10 PO PRN ×3 (01:35→10:14)
[2018-09-01] MEDS: ZOSYN 3.375 GM in NS 50 ML IV SCH ×4 (04:04→22:13)
[2018-09-01] MEDS: SODIUM CHLORIDE 0.9% INJ SCH (10:16)
[2018-09-01] MEDS: MIRALAX PO SCH ×2 (10:16→22:13)
[2018-09-01] MEDS: PROTONIX IV SCH (10:16)
[2018-09-01 11:46] LABS: HEMATOCRIT 35.5 % (37.0-47.0); HEMOGLOBIN 11.9 g/dL (12.0-16.0); MCH 29.5 PG (27-31); MCHC 33.5 g/dL (33-37); MCV 87.9 FL (81-99); MPV 9.9 FL (7.4-10.4); RBC 4.04 XMIL (4.2-5.4); RDW 12.8 % (11.5-14.5); WBC 6.9 X1000 (4.8-10.8)
[2018-09-01 12:02] LABS: AGAP 10; ALB/GLOB RATIO 0.9; ALBUMIN 3.3 g/dL (3.5-5.0); ALKALINE PHOSPHATASE 227 U/L (32-104); BUN 4 mg/dL (8-22); CALCIUM 8.8 mg/dL (8.8-10.2); CHLORIDE 104 mmol/L (98-107); COSMO 276; CREATININE 0.5 mg/dL (0.5-0.9); ESTIMATED GFR > 60; GLUCOSE 96 mg/dL (70-104); GOT 161 U/L (10-30); GPT 304 U/L (10-36); LIPASE 14 U/L (13-60); POTASSIUM 3.9 mmol/L (3.5-5.1); SODIUM 140 mmol/L (136-145); TCO2 26 mmol/L (25-35); TOTAL BILIRUBIN 3.42 mg/dL (0.20-1.00); TOTAL PROTEIN 6.8 g/dL (6.3-8.3)
[2018-09-01] MEDS: PERCOCET-5 PO PRN ×2 (14:28→19:07)
[2018-09-01] MEDS: LR 1,000 ML IV SCH (17:51)
--- NOTE | 2018-09-01 18:13 | PROVIDER PROGRESS NOTE ---
Progress Note SUBJECTIVE: No acute overnight events. Afebrile. Patient denies N/V/F, CP, SOB. She continues to have back and upper abdominal pain. She is tolerating liquids. She has been eating snacks as well. OBJECTIVE: Last Vital Signs Temp 98.3 F 09/01/18 08:00 Pulse 58 L 09/01/18 08:00 Resp 22 09/01/18 08:00 BP 118/78 09/01/18 08:00 Pulse Ox 100 09/01/18 08:00 Height 5 ft Weight 140 lb GEN: awake, alert, NAD HEENT: anicteric, MMM NECK: supple, no jvd PULM: CTAB, no wheezing CV: RRR, no murmurs ABD: soft, mild TTP throughout, RUQ GODWIN in place with clear fluid; BS present EXT: no cce NEURO: nonfocal LABS: 09/01/18 09/01/18 11:35 11:35 WBC 6.90 Hgb 11.9 L Hct 35.5 L Plt Count 286 Sodium 140 Potassium 3.9 Chloride 104 Carbon Dioxide 26 BUN 4 L Creatinine 0.5 Glucose 96 Total Bilirubin 3.42 H AST 161 H ALT 304 H Alkaline Phosphatase 227 H Total Protein 6.8 Albumin 3.3 L A/P: Ms. Mary Fleming is a 22 year old woman admitted with acute cholecystitis s/p lap mikhail noted to have choledocholithiasis on IOC. ERCP was negative for CBD stone s/p sphincterotomy; however, unable to pass wire into CBD to do balloon sweep. LFTs elevated and plateaued. She is clinically stable. No leukocytosis. On abx. #Choledocholithiasis: s/p ERCP with sphincterotomy only - trending LFTs daily - on empiric abx with zosyn - advance diet to as tolerated - patient may need repeat ERCP early next week if her LFTs do not continue to downtrend #Acute cholecystitis: s/p lap mikhail; GODWIN drain in place; analgesics prn; surgery following; defer GODWIN drain mgmt to surgery #Anemia: stable; no overt bleeding; trending H/H #Abnormal LFTs: trending #Nausea; antiemetics prn; on PPI Will follow with you
--- NOTE | 2018-09-01 18:41 | GENERAL SURGERY PROGRESS NOTE ---
DATE: 09/01/2018 SUBJECTIVE: Is feeling some better. White count is normal. Bilirubin remains elevated. AST, ALT and alkaline phosphatase are normal. Lipase is 14. ASSESSMENT AND PLAN: A 22-year-old female with choledocholithiasis. Her drain is serosanguineous. She anticipates still has a common bile duct stone given her persistent elevation of LFTs. I discussed this with Dr. Wright in Dr. Roland's group. I do think she wants ERCP to hopefully extract the stone. Unlikely to pass it given the size. She is on antibiotics. She is on IV fluids. She is tolerating some clear liquids. cc: Jaret Correia MD
[2018-09-02] MEDS: ZOSYN 3.375 GM in NS 50 ML IV SCH ×3 (03:32→17:48)
[2018-09-02] MEDS: MIRALAX PO SCH (08:09)
[2018-09-02] MEDS: PERCOCET-5 PO PRN (08:09)
[2018-09-02] MEDS: SODIUM CHLORIDE 0.9% INJ SCH (08:09)
[2018-09-02] MEDS: PROTONIX IV SCH (08:09)
[2018-09-02] MEDS: LR 1,000 ML IV SCH (10:20)
[2018-09-02] MEDS: MORPHINE IV PRN ×3 (11:43→20:13)
--- NOTE | 2018-09-02 13:49 | GENERAL SURGERY PROGRESS NOTE ---
DATE: 09/02/2018 SUBJECTIVE: The patient complains of ongoing abdominal pain that is minimally helped with Percocet. She gets a little relief for a couple of hours, but then has significant pain that returns. She actually had a little better relief with [place] and morphine p.r.n. No nausea or vomiting. OBJECTIVE: She is afebrile. Vital signs are stable.General: She is awake and alert and oriented x3. No acute distress, but appears uncomfortable. Gastrointestinal: Soft, diffusely tender. No rebound or guarding. Incision is clean, dry, and intact. GODWIN drain is clear and serous. There may be some bile tinge to it, but not overtly bilious. LABORATORY: AST 161, ALT 304, alkaline phosphatase 227, total bilirubin 3.4. ASSESSMENT AND PLAN: A 22-year-old female status post laparoscopic cholecystectomy with intraoperative evidence of retained common bile duct stone; endoscopic retrograde cholangiopancreatography, however, was unable to fully evaluate the duct. She continues to have persistent abdominal pain and elevated LFTs. It appears that she will need repeat ERCP soon if she does not show significant improvement. I will change her back to [place] and morphine for now. cc: MD Jaret Khan MD
[2018-09-02] MEDS: NORCO-10 PO PRN ×2 (18:04→22:26)
--- NOTE | 2018-09-02 19:37 | GASTROENTEROLOGY PROGRESS NOTE ---
DATE: 09/02/2018 SUBJECTIVE: Patient resting in bed. She complains of abdominal discomfort. She denies any fever, rigors, chills. She denies any nausea, vomiting, she is eating better, she is moving her bowels. Vitals: Temperature 98.6 degrees, pulse rate 64, respiratory 16, blood pressure 116/70, saturating 100% on room air, body weight of 140 pounds, BMI 27.3 kg. General: Moderate built lying in bed in no acute. HEENT: Mild pallor, mild icterus. Pupils equal, reactive to light, accommodation. Neck: Supple. Abdomen: Discomfort in the right upper quadrant. No rebound, no guarding. Extremities: No cyanosis, clubbing. Neuro: Alert, awake, oriented. LABS: Her hemoglobin and hematocrit is 11.9 and 35.5, white count of 6.9, platelet count of 286,000. Sodium 140, potassium 3.9, chloride 104, anion gap 10, BUN of 4, creatinine 0.5, glucose of 96, calcium is 8.8, total bilirubin is 3.42, AST 161, ALT 304, alkaline phosphatase was 227, total protein is 6.0, albumin of 3.3, lipase of 14. These are labs from yesterday. No labs were drawn today. The primary team has ordered the lab for tomorrow. IMPRESSION AND PLAN: 1. Choledocholithiasis status post ERCP with sphincterotomy but the deep cannulation of the common bile duct could not be obtained. Will check the labs tomorrow. If her liver enzymes and bilirubin is worsening then she may need repeat ERCP with Dr. Wright on Tuesday. I have discussed that option with the patient and all questions answered. She will continue on IV antibiotics with Zosyn for now. I will follow up on labs tomorrow. We ordered a CMP and CBC for tomorrow. 2. Acute cholecystitis status post laparoscopic cholecystectomy and Pepe- Miranda drain is in place. Dr. Bates and Dr. Correia are following. 3. Anemia. Continue watch for now. 4. Nausea is improving. 5. Pain control IV morphine. 6. Bowel regimen with MiraLAX and Dulcolax. 7. Gastrointestinal prophylaxis PPIs. 8. The above plan with the patient and all questions answered. Please call us with any further questions. cc: MD Jaret Zamudio MD [facility]ENTER[facility]ynn
[2018-09-03] MEDS: MORPHINE IV PRN ×5 (00:08→22:02)
[2018-09-03] MEDS: ZOSYN 3.375 GM in NS 50 ML IV SCH ×5 (00:10→22:02)
[2018-09-03] MEDS: DULCOLAX PR SCH ×2 (00:10→22:19)
[2018-09-03] MEDS: LR 1,000 ML IV SCH ×3 (00:10→09:24)
[2018-09-03] MEDS: MIRALAX PO SCH ×3 (00:10→22:02)
[2018-09-03] MEDS: NORCO-10 PO PRN ×5 (03:06→22:41)
[2018-09-03 07:18] LABS: BASO# 0.02 X1000 (0.0-0.2); BASO% 0.3 % (0.0-0.8); EOS% 2.9 % (0.0-10.0); HEMATOCRIT 36.7 % (37.0-47.0); HEMOGLOBIN 12.1 g/dL (12.0-16.0); IMM GRAN# 0.02 X1000 (0.0-0.04); IMM GRAN% 0.3 % (0.0-0.5); LYMPH# 1.55 X1000 (1.2-3.4); LYMPH% 22.7 % (20.5-51.1); MONO# 0.67 X1000 (0.11-0.59); MONO% 9.8 % (1.7-9.3); MPV 10.5 FL (7.4-10.4); NEUT# 4.37 X1000 (1.4-6.5); PLT 304 X1000 (130-400); RBC 4.17 XMIL (4.2-5.4); RDW 13.5 % (11.5-14.5); WBC 6.83 X1000 (4.8-10.8)
[2018-09-03 07:50] LABS: AGAP 11; ALBUMIN 3.5 g/dL (3.5-5.0); ALKALINE PHOSPHATASE 240 U/L (32-104); BUN 7 mg/dL (8-22); CHLORIDE 102 mmol/L (98-107); COSMO 278; CREATININE 0.6 mg/dL (0.5-0.9); ESTIMATED GFR > 60; GLUCOSE 117 mg/dL (70-104); GOT 188 U/L (10-30); GPT 359 U/L (10-36); POTASSIUM 3.6 mmol/L (3.5-5.1); SODIUM 140 mmol/L (136-145); TCO2 27 mmol/L (25-35); TOTAL BILIRUBIN 3.84 mg/dL (0.20-1.00); TOTAL PROTEIN 7.1 g/dL (6.3-8.3)
[2018-09-03] MEDS: PROTONIX IV SCH (09:08)
[2018-09-03] MEDS: SODIUM CHLORIDE 0.9% INJ SCH (09:09)
--- NOTE | 2018-09-03 14:28 | GENERAL SURGERY PROGRESS NOTE ---
DATE: 09/03/2018 SUBJECTIVE: The patient says her abdominal pain has improved some. Now she is having some back pain. OBJECTIVE: Vital signs: She is afebrile. Vital signs are stable. General: She is awake, alert, oriented x4. No acute distress. GI: Soft. Minimal tenderness. Incision is clean, dry, and intact. LABORATORY: Her liver function tests were reviewed and all are mildly elevated compared to yesterday. ASSESSMENT AND PLAN: This is a 22-year-old female status post laparoscopic cholecystectomy with evidence of common bile duct stone on cholangiogram. She continues to have elevated liver function tests and I think she will need repeat ERCP to clear the duct. cc: MD Jaret Khan MD
--- NOTE | 2018-09-03 21:18 | GASTROENTEROLOGY PROGRESS NOTE ---
DATE: 09/03/2018 SUBJECTIVE: Patient is resting in bed. She complains of abdominal pain in the periumbilical region, epigastrium right upper quadrant. She denies any nausea or vomiting. Her last bowel movement was yesterday. OBJECTIVE: Vital Signs: Temperature 98.1, pulse rate of 63, respiratory rate 16, blood pressure 105/69, saturating 100%. General appearance: Moderately nourished, lying in bed, in no acute distress. HEENT: Mild pallor. Mild icterus. Neck: Supple. Abdomen: Discomfort in the right upper quadrant. There is a drain in the right upper quadrant. No rebound or guarding. Extremities: No cyanosis or clubbing. Neurologic: Alert, awake, and oriented. LABORATORY DATA: Hemoglobin and hematocrit 12.1 and 36.7, white count 6.83, platelet count of 304,000. MCV of 88. Sodium 140, potassium 3.6, chloride 102, bicarb 27, anion gap 11, BUN of 7, creatinine 0.6, glucose of 117, calcium is 9, Direct bilirubin is 2.7. AST 188, ALT 359, alkaline phosphatase 240. Total protein 7.1. Albumin of 3.5. IMPRESSION AND PLAN: 1. Elevated liver enzymes. Likely secondary to choledocholithiasis. I have discussed her case with Dr. Wright. We will schedule for ERCP tomorrow with Dr. Wright. The risks, benefits, indications, and alternatives discussed with the patient. All questions answered. 2. Acute cholecystitis status post laparoscopic cholecystectomy and GODWIN drain placement. Dr. Correia and Dr. Bates are following. 3. Anemia. Mild. Continue to watch. 4. Constipation. She is on MiraLAX and Dulcolax. 5. Pain control with IV morphine. 6. Nausea has improved. 7. GI prophylaxis, PPIs. Above plan was discussed with the patient. All questions answered. Please call us with any further questions. cc: MD Jaret Metz MD Kenneth E. Mashburn, MD MTDD
[2018-09-04] MEDS: MORPHINE IV PRN ×2 (01:45→05:37)
[2018-09-04] MEDS: ZOSYN 3.375 GM in NS 50 ML IV SCH ×2 (03:53→13:42)
[2018-09-04] MEDS ORDERED: VERSED ONE (08:31)
[2018-09-04] MEDS ORDERED: DIPRIVAN 1% ONE ×2 (08:32→09:22)
[2018-09-04] MEDS ORDERED: XYLOCAINE-MPF 2% ONE (08:32)
[2018-09-04] MEDS: PROTONIX IV SCH (10:40)
[2018-09-04] MEDS: MIRALAX PO SCH ×2 (10:40→22:44)
--- NOTE | 2018-09-04 11:02 | OPERATIVE NOTE ---
PROCEDURE DATE:09/04/2018 PROCEDURE PERFORMED: ERCP, endoscope sphincterotomy extension, stone removal with a basket, stent placement. PREOPERATIVE DIAGNOSIS: Common bile duct stone. POSTOPERATIVE DIAGNOSIS: Common bile duct stone. DESCRIPTION OF PROCEDURE: After informed consent and adequate intravenous sedation, the scope introduced through the esophagus, stomach, and duodenum. The previous papillotomy site is well healed and very open. There is free flow of bile. A cholangiogram revealed a floating stone that is , slightly bigger than the papillotomy site. The papillotomy was extended. The stone was removed and a stent was placed. I will see her in the office in 2 weeks and remove the stent electively. cc: MD Jaret Davis MD MTDD
[2018-09-04 11:17] VITALS: BP 125/72
--- NOTE | 2018-09-04 12:31 | Diag Imaging Result Doc PS360 ---
EXAM: ERCP-BILIARY AND PANCREATIC INDICATION: ? CBD stone TECHNIQUE: COMPARISON: None. FINDINGS: Four spot fluoroscopic images were provided, which were performed during ERCP and biliary stent placement by Dr. Wright. On the initial image, there is a filling defect seen in the common bile duct indicating a ductal stone. The common bile duct is dilated. This stone was then retrieved. On the final image, the newly placed biliary stent is identified in the expected position. IMPRESSION: As above. Please correlate with live fluoroscopic imaging. Electronically signed by Justin Braun 09/04/2018 12:29 PM
[2018-09-04] MEDS: LR 1,000 ML IV SCH (13:42)
--- NOTE | 2018-09-04 13:46 | GENERAL SURGERY PROGRESS NOTE ---
DATE: 09/04/2018 SUBJECTIVE: She was seen outside the hospital this morning, taking a walk. She is in no acute distress. There is no jaundice or scleral icterus. LABORATORY: I reviewed her laboratories. White count was 6 yesterday. Her bilirubin is up to 3.84. AST, ALT and alkaline phosphatase remain elevated. ASSESSMENT AND PLAN: This is a 22-year-old female with choledocholithiasis. Plan is for repeat ERCP tomorrow. We will follow the results of that and disposition pending findings. cc: Jaret Correia MD
[2018-09-04] MEDS: NORCO-10 PO PRN ×2 (16:54→20:52)
[2018-09-04] MEDS: DULCOLAX PR SCH (22:44)
[2018-09-05] MEDS: NORCO-10 PO PRN ×2 (00:05→07:04)
[2018-09-05 07:09] LABS: AGAP 11; ALB/GLOB RATIO 0.9; ALBUMIN 3.1 g/dL (3.5-5.0); ALKALINE PHOSPHATASE 211 U/L (32-104); BUN 13 mg/dL (8-22); CALCIUM 8.7 mg/dL (8.8-10.2); CHLORIDE 106 mmol/L (98-107); COSMO 287; CREATININE 0.5 mg/dL (0.5-0.9); ESTIMATED GFR > 60; GLUCOSE 132 mg/dL (70-104); GOT 102 U/L (10-30); GPT 231 U/L (10-36); POTASSIUM 3.5 mmol/L (3.5-5.1); SODIUM 143 mmol/L (136-145); TCO2 26 mmol/L (25-35); TOTAL BILIRUBIN 1.49 mg/dL (0.20-1.00); TOTAL PROTEIN 6.5 g/dL (6.3-8.3)
[2018-09-05] MEDS: MIRALAX PO SCH (09:16)
--- NOTE | 2018-09-05 21:32 | DISCHARGE SUMMARY ---
ADMISSION DATE: 08/27/2018 DISCHARGE DATE: 09/05/2018 ADMITTING DIAGNOSIS: Cholecystitis. POSTOPERATIVE DIAGNOSIS: Cholecystitis with choledocholithiasis. PROCEDURES PERFORMED: 1. Laparoscopic cholecystectomy with cholangiogram, performed on 08/27/2018. 2. ERCP with sphincterotomy, by Dr. Wright on 08/29/2018. 3. ERCP with stone extraction and stent placement, by Dr. Wright on 09/04/2018. HISTORY OF PRESENT ILLNESS: This 22-year-old female had presented with severe abdominal pain. She was found to have changes consistent with cholecystitis. She was taken to the operating room. HOSPITAL COURSE: Intraoperatively, she was found to have a retained common bile duct stone. For details of her operation, please see dictated operative note. Postoperatively, she was admitted to my service. She had a drain in place and was continued on antibiotics. Her LFTs remained elevated with bilirubin in the 3's that gradually dolly. Given this finding, she underwent ERCP with Dr. Wright. He was unable to extract the stone, but did a sphincterotomy, expecting the stone to pass, but unfortunately her LFTs continued to gradually rise. She did well. She had a mild elevation of her lipase after the first ERCP and after allowing this to resolve, she underwent a second ERCP where a stent was placed and the stone was removed. She tolerated this well. LFTs began immediately downtrending and her lipase remained normal. She felt great and felt safe for discharge. Her drain was removed as it was serosanguineous. Her incisions were all intact. She has remained afebrile and her white count normalized on multiple checks. Her bilirubin on discharge was 1.49. AST and ALT and alkaline phosphatase were downtrending. Lipase was 33. Followup appointment is with me in 1 week. DISPOSITION: Home to self-care. Discharge instructions were given in written and verbal formats. Followup appointment with Dr. Wright. She will ultimately need her stent removed. Diet as tolerated. MEDICATIONS: 1. Max. 2. Colace. 3. Zofran. cc: Jaret Correia MD
== END 2018-09-05 09:23 | disposition home or self-care (01) | DRG 419 ==
LOC: P.ED 17:57 → 4N 08-27 03:07
PROVIDERS: ADMIT Surgery; ATTEND Surgery
PROC: EN.ERCP (2018-08-29 12:00)
CPT/HCPCS: 71020; 71046; 74300; 74330; 76705; 80053; 81025; 82150; 82248; 83690; 85025; 85027; 85610; 85730; 88304; 93005; 96365; 96375; 96376; 99285; A9270; C1751; C9113; J0131; J0330; J1100; J2250; J2270; J2370; J2405; J2543; J3010; J7030; J7120; Q9966; Q9967; S0164